=== PATIENT | female | born 1960 | race Caucasian/White ===

== ENCOUNTER 2018-09-05 14:15 | Emergency (ER) | payer BC ==
[2018-09-05 15:19] LABS: PLATELET COUNT 232 10^3/uL (150-400)
--- NOTE | 2018-09-05 15:19 | EDPHY ---
H & P Time Seen by Provider: 09/05/18 15:19 HPI/ROS: CHIEF COMPLAINT: Dizziness HISTORY OF PRESENT ILLNESS: Patient had symptoms about a year before when she was doing flip turns in the pool which triggered these exact symptoms. She started doing surface turns and did not happen anymore. 2 days ago she started getting dizziness during Pilates class. She says that every time she changed position or moves her head she would get sensation of spinning in the room moving associated with nausea which resolved if she remains still. This happened also on Wednesday and then today and mostly has resolved. Today she only got lightheaded once when she stood up at 11:00 a.m. At the meeting. She went to her primary care doctor's office and ultimately was referred here for evaluation. Currently the patient does not have vertigo talking to me. She denies headache or neck pain, weakness or numbness in extremities, double vision, trouble with speech thought or balance. REVIEW OF SYSTEMS: Eye: no change in vision ENT: no sore throat or earache or hearing loss. She did have a whistling sensation in her right ear about a week ago which is resolved. Cardiac: no chest pain or syncope Pulmonary: no cough or SOB Abdomen: no vomiting, diarrhea, abdominal pain Musculoskeletal: no back pain or neck pain Skin: no rash Neuro: no headache Constitutional: no fever : no urinary symptoms A comprehensive 10 point review of systems is otherwise negative aside from elements mentioned in the history of present illness. PAST MEDICAL HISTORY: Includes hypertension Social history: Primary care is [facility] General Appearance: Alert and conversant, cooperative. Eyes: No scleral icterus. Pupils equal reactive extraocular motion intact no nystagmus now. ENT, Mouth: Normal mucous membranes. Normal tympanic membranes bilaterally. Respiratory: Normal respiratory effort, breath sounds equal, lungs are clear to auscultation. Cardiovascular: Regular rate and rhythm. No carotid bruit. Gastrointestinal: Abdomen is soft and non tender. Neurological: Alert, face symmetric, normal motor and sensory in extremities. Is fluent speech, normal [id number] bilaterally, no pronator drift. Unable to create or provokes symptoms of vertigo by changing position or moving head at this time. Skin: Warm and dry, no rashes. Musculoskeletal: No peripheral edema. Psychiatric: Not agitated. Emergency Department course/MDM: Patient's isolated episode today of lightheaded on standing was probably is mild orthostatic hypotension. She does not have major symptoms of vertigo today, I think her risk of having central source such as cerebellar stroke or vertebral dissection or intracranial mass or bleed are unlikely. Most likely peripheral vertigo. Patient is almost completely asymptomatic this time, medications discussed, patient declined. Smoking Status: Current some day smoker Constitutional: Initial Vital Signs Temperature (C) 36.7 C 09/05/18 14:29 Heart Rate 75 09/05/18 14:29 Respiratory Rate 16 09/05/18 14:29 Blood Pressure 151/101 H 09/05/18 14:29 O2 Sat (%) 97 09/05/18 14:29 O2 Delivery Mode Room Air Allergies/Adverse Reactions: aspirin Allergy (Mild, Verified 09/05/18 14:36) Abdominal Cramping Home Medications: Medication Instructions Recorded Unk Bp Med 09/05/18 Medical Decision Making - Diagnostics EKG Interpretation: 12-lead EKG interpreted by me; official reading is in computer system. My interpretation is sinus rhythm rate 69 with no ischemic changes normal intervals. - Data Points Laboratory Results: Laboratory Results 09/05/18 15:05 09/05/18 15:05 09/05/18 09/05/18 15:05 15:05 WBC 6.40 10^3/uL 10^3/uL (3.80-9.50) RBC 4.62 10^6/uL 10^6/uL (4.18-5.33) Hgb 14.4 g/dL g/dL (12.6-16.3) Hct 43.4 % % (38.0-47.0) MCV 93.9 fL fL (81.5-99.8) MCH 31.2 pg pg (27.9-34.1) MCHC 33.2 g/dL g/dL (32.4-36.7) RDW 12.6 % % (11.5-15.2) Plt Count 232 10^3/uL 10^3/uL (150-400) MPV 10.0 fL fL (8.7-11.7) Neut % (Auto) 45.7 % % (39.3-74.2) Lymph % (Auto) 37.7 % % (15.0-45.0) Cook % (Auto) 10.9 % % (4.5-13.0) Eos % (Auto) 5.0 % % (0.6-7.6) Baso % (Auto) 0.5 % % (0.3-1.7) Nucleat RBC Rel Count 0.0 % % (0.0-0.2) Absolute Neuts (auto) 2.93 10^3/uL 10^3/uL (1.70-6.50) Absolute Lymphs (auto) 2.41 10^3/uL 10^3/uL (1.00-3.00) Absolute Monos (auto) 0.70 10^3/uL 10^3/uL (0.30-0.80) Absolute Eos (auto) 0.32 10^3/uL 10^3/uL (0.03-0.40) Absolute Basos (auto) 0.03 10^3/uL 10^3/uL (0.02-0.10) Absolute Nucleated RBC 0.00 10^3/uL 10^3/uL (0-0.01) Immature Gran % 0.2 % % (0.0-1.1) Immature Gran # 0.01 10^3/uL 10^3/uL (0.00-0.10) Sodium 138 mEq/L mEq/L (135-145) Potassium 4.1 mEq/L mEq/L (3.3-5.0) Chloride 103 mEq/L mEq/L (97-110) Carbon Dioxide 28 mEq/l mEq/l (22-31) Anion Gap 7 mEq/L mEq/L (6-14) BUN 13 mg/dL mg/dL (7-23) Creatinine 0.7 mg/dL mg/dL (0.6-1.0) Estimated GFR > 60 Glucose 95 mg/dL mg/dL (70-100) Calcium 9.3 mg/dL mg/dL (8.5-10.4) Departure - Departure Disposition: Home, Routine, Self-Care Clinical Impression: Vertigo Acute labyrinthitis Qualifiers: Laterality: unspecified laterality Qualified Code(s): H83.09 - Labyrinthitis, unspecified ear Condition: Good Instructions: Vertigo (ED) Referrals: Gina Reis MD [Primary Care Provider] - As per Instructions
--- NOTE | 2018-09-05 15:24 | CPEKG ---
Test Reason : OPEN Blood Pressure : / mmHG Vent. Rate : 069 BPM Atrial Rate : 069 BPM P-R Int : 149 ms QRS Dur : 092 ms QT Int : 409 ms P-R-T Axes : 037 009 030 degrees QTc Int : 438 ms Sinus rhythm Confirmed by Zackery Breaux ([id number]) on 09/05/2018 3:23:18 PM Referred By: Confirmed By:Zackery Breaux
[2018-09-05 15:53] VITALS: BP 152/92
== END 2018-09-05 15:52 | disposition home or self-care (01) ==
DX: H83.09 Labyrinthitis, unspecified ear (principal); I10 Essential (primary) hypertension